=== PATIENT | female | born 1985 | race Caucasian/White ===

== ENCOUNTER → 2018-05-11 15:47 | Outpatient (CLI) | payer OTHER, MEDICAID, SELFPAY ==
[2018-05-11 17:50] LABS: Thyroid Stimulating Hormone 3.43 uIU/mL (0.47-4.68)
== END ==
PROVIDERS: PCP Family Medicine; Visit Provider Internal Medicine
DX: E03.9 Hypothyroidism, unspecified (principal)
CPT/HCPCS: 36415; 84443

== ENCOUNTER → 2018-11-19 11:01 | Outpatient (CLI) | payer OTHER, MEDICAID, SELFPAY | PROVIDERS: PCP Student in an Organized Health Care Education/Training Program; Visit Provider Student in an Organized Health Care Education/Training Program | DX: Z13.220 Encounter for screening for lipoid disorders (principal); E55.9 Vitamin D deficiency, unspecified ==

== ENCOUNTER → 2018-12-17 09:09 | Outpatient (CLI) | payer OTHER, MEDICAID, SELFPAY ==
[2018-12-17 10:06] LABS: Add Manual Diff / Slide Review NO; Basophils Absolute Auto 200 /uL (0-100); Basophils Percent Auto 2.7 % (0-2); Eosinophils Absolute Auto 300 /uL (0-450); Eosinophils Percent Auto 4.5 % (2-4); Hematocrit 37.6 % (36-46); Lymphocytes Absolute Auto 1800 /uL (1100-4500); Lymphocytes Percent Auto 24.5 % (25-40); Mean Corpuscular HGB Conc 34.5 % (30-36); Mean Corpuscular Hemoglobin 28.5 PG (26-34); Mean Corpuscular Volume 82.5 fL (80-100); Monocytes Absolute Auto 500 /uL (0-900); Monocytes Percent Auto 7.2 % (3-14); Neutrophils Absolute Auto 4500 /uL (1500-7000); Neutrophils Percent Auto 61.1 % (50-75); Platelet Count 339 X10^3/uL (150-400); Red Blood Cell Count 4.55 X10^6/uL (4.0-5.2); White Blood Cell Count 7.3 X10^3/uL (4.5-11.0)
[2018-12-17 10:33] LABS: Alanine Aminotransferase 36 IU/L (9-52); Albumin 4.5 g/dL (3.5-5.0); Albumin Globulin Ratio 1.5 (1.0-2.8); Alkaline Phosphatase 82 U/L (38-126); Aspartate Aminotransferase 25 IU/L (14-36); BUN Creatinine Ratio 28.3 (6-22); Bilirubin Total 0.8 mg/dL (0.2-1.3); Blood Urea Nitrogen 17 mg/dL (7-17); Calcium 8.9 mg/dL (8.4-10.2); Carbon Dioxide 23 mmol/L (22-32); Chloride 105 mmol/L (98-107); Cholesterol 189 mg/dL (140-199); Estimated Glomerular Filt Rate > 60.0 mL/min (>60); Globulin 3.1 g/dL (1.7-4.1); Glucose 93 mg/dL (70-100); HDL Cholesterol 35 mg/dL (40-60); HEMOLYSIS < 15 (0-50); LDL Cholesterol Calculated 96 mg/dL (<100); Sodium 139 mmol/L (137-145); Total Protein 7.6 g/dL (6.3-8.2); Triglycerides 290 mg/dL (35-150)
[2018-12-17 10:48] LABS: Vitamin D 25 Hydroxy (D3) 16.5 ng/mL (30.0-100.0)
[2018-12-17 11:01] LABS: Cortisol AM (Before 10AM) 15.4 ug/dL (4.46-22.7)
[2018-12-17 11:36] LABS: Free T3, Triiodothyronine Free 3.33 pg/mL (2.77-5.27); Free T4, Direct Thyroxine 0.83 ng/dL (0.78-2.19)
[2018-12-17 11:50] LABS: Thyroid Stimulating Hormone 2.96 uIU/mL (0.47-4.68)
[2018-12-19 15:18] LABS: Thyroid Peroxidase Antibodies 1 IU/mL (< 9)
== END ==
PROVIDERS: PCP Student in an Organized Health Care Education/Training Program; Visit Provider Student in an Organized Health Care Education/Training Program
DX: E03.9 Hypothyroidism, unspecified (principal); G47.00 Insomnia, unspecified; R63.5 Abnormal weight gain; Z13.220 Encounter for screening for lipoid disorders; E55.9 Vitamin D deficiency, unspecified
CPT/HCPCS: 36415; 80053; 80061; 82306; 82533; 84439; 84443; 84481; 85025; 86376

== ENCOUNTER 2019-04-22 20:08 | Emergency (ER) | payer OTHER, MEDICAID, SELFPAY ==
[2019-04-22 20:15] VITALS: BP 155/92; PULSE 87; RESP 12; TEMP 36.9; O2SAT 99; BMI 29.2
--- NOTE | 2019-04-22 20:42 | ED.NAVMDI ---
HPI - Nausea/Vomiting/Diarrhea General Chief complaint: Nausea/Vomiting/Diarrhea Stated complaint: VOMITING STOMACH PAIN Time Seen by Provider: 04/22/19 20:37 Source: patient Mode of arrival: ambulatory Limitations: no limitations History of Present Illness HPI Narrative: Patient is a 33-year-old female who presents with abdominal distention pain and vomiting. She states it started this morning she has some epigastric pain. She feels like her abdomen is more distended normal. She really has diffuse pain more in her epigastric area. She has vomited and not been able to keep anything down. She had a normal bowel movement yesterday. He took some Tylenol earlier for pain and is afebrile here but she says she has felt warm. She is in charge of 4 children and a father who has dementia she is not wanting any sort of narcotic medications. She says it hurts every time she walks. MD complaint: nausea, vomiting and abdominal pain Description of Diarrhea: none Location of pain: diffuse and epigastric Quality: cramping and stabbing Related Data Previous Rx's Medication Instructions Recorded zolpidem 10 mg tablet 10 mg PO HSP #30 tab 11/14/18 Allergies Allergy/AdvReac Type Severity Reaction Status Date / Time codeine Allergy Severe Anaphylaxis Verified 04/22/19 20:27 erythromycin base AdvReac Mild VIOLENTLY Verified 04/22/19 20:27 ILL Review of Systems Review of Systems GENERAL: Denies chills, fatigue, malaise, fever, sweats, travel HEENT: Denies sinus pain, ear pain, sore throat, difficulty swallowing, neck pain RESPIRATORY: Denies dyspnea, cough, wheezing, hemoptysis, sputum. CARDIOVASCULAR: Denies chest pain, palpitations, orthopnea, edema GASTROINTESTINAL: See HPI : Denies dysuria, frequency, incontinence, hematuria, urinary retention, flank pain. MUSCULOSKELETAL: Denies weakness, joint pain, or bony pain SKIN: No rash, no erythema, no pruritus NEUROLOGIC: Denies weakness, dizziness, headache, numbness, change in speech, confusion PSYCHIATRIC: No concerning psychosocial issues. 12 point review of systems is negative except for those stated above and HPI [facility] Medical History (Updated 04/22/19 @ 23:43 by Yee Mabry DO) Hypothyroidism (Chronic 2013) Surgical History (Updated 04/22/19 @ 20:58 by Yee Mabry DO) History of bilateral tubal ligation (Acute) Family History (Updated 05/04/18 @ 12:37 by Ciara Rivera) Mother Hypothyroidism Father Hyperlipidemia CAD (coronary artery disease) Social History Smoking Status: Never smoker alcohol intake: never substance use type: does not use Family History (Updated 05/04/18 @ 12:37 by Ciara Rivera) Mother Hypothyroidism Father Hyperlipidemia CAD (coronary artery disease) Social History Smoking Status: Never smoker alcohol intake: never substance use type: does not use Exam Initial Vital Signs Initial Vital Signs: Vital Signs Temperature 98.5 F 04/22/19 20:15 Pulse Rate 87 04/22/19 20:15 Respiratory Rate 12 04/22/19 20:15 Blood Pressure 155/92 H 04/22/19 20:15 Pulse Oximetry 99 04/22/19 20:15 GENERAL: Young female appears and [id number] pain really has difficulty ambulating due to pain. HEENT: Head atraumatic,EOMI, pupils reactive, face symmetric, [moist] mucous membranes] CARDIOVASCULAR: Regular rate and rhythm without murmurs, rubs or gallops. RESPIRATORY: Breath sounds equal bilaterally, no wheezes rales or rhonchi. ABDOMEN: Soft slightly distended diffuse pain mostly in epigastric area and right upper quadrant but has pain in her lower abdomen as well decreased bowel sounds : No CVA tenderness EXTREMITIES: Normal range of motion, no clubbing or edema. Neurovascularly intact NEUROLOGICAL: Alert and oriented x4.Normal gait and speech. Cranial nerves II through XII grossly intact. SKIN: Warm, dry, no laceration, no petechiae, no rashes or lesions. Course Orders Ordered: ED Orders 04/22/19 20:30 Complete Blood Count AUTO DIFF Stat Comprehensive Metabolic Panel Stat Lipase Stat Partial Thromboplastin Time Stat Test Serum,Qual Stat Prothrombin Time INR Stat 04/22/19 21:12 Urine Microscopic Stat 04/22/19 21:24 CT abdomen pelvis w con Stat 04/22/19 22:07 US abdomen limited Stat Discontinued Medications Sodium Chloride (Normal Saline 0.9%) 1,000 mls @ 1,000 mls/hr IV BOLUS ONE Stop: 04/22/19 21:22 Last Infusion: 04/22/19 23:59 Dose: 0 mls/hr Admin: 04/22/19 21:05 Dose: 1,000 mls/hr Sodium Chloride (Normal Saline 0.9%) 1,000 mls @ 1,000 mls/hr IV BOLUS ONE Stop: 04/22/19 21:49 Ketorolac Tromethamine (Toradol) 30 mg IV NOW ONE Stop: 04/22/19 22:08 Last Admin: 04/22/19 22:16 Dose: 30 mg Ondansetron HCl (Zofran) 4 mg IV NOW ONE Stop: 04/22/19 20:24 Last Admin: 04/22/19 21:05 Dose: 4 mg Ondansetron HCl (Zofran) 4 mg IV NOW ONE Stop: 04/22/19 20:51 Ondansetron HCl (Zofran Odt) 4 mg SL NOW ONE Stop: 04/22/19 23:40 Ondansetron HCl (Zofran Odt Prepack) 1 bottle MISC SEEINSTR ONE Stop: 04/22/19 23:59 Last Admin: 04/22/19 23:59 Dose: 1 bottle Oxycodone/Acetaminophen (Endocet 5/325 Prepack) 1 bottle MISC SEEINSTR ONE Stop: 04/22/19 23:40 Last Admin: 04/22/19 23:58 Dose: 1 bottle Pantoprazole Sodium (Protonix) 40 mg IV NOW ONE Stop: 04/22/19 20:51 Last Admin: 04/22/19 21:05 Dose: 40 mg Vital Signs - 8 hr 04/22/19 20:15 04/22/19 21:13 04/22/19 22:11 Temperature 98.5 F Pulse Rate 87 83 90 Respiratory Rate 12 12 15 Blood Pressure 155/92 H Blood Pressure [Right Arm] 155/82 H 112/77 Pulse Oximetry 99 99 98 04/22/19 23:00 04/22/19 23:30 Temperature Pulse Rate 82 83 Respiratory Rate 16 17 Blood Pressure Blood Pressure [Right Arm] 115/90 117/88 Pulse Oximetry 100 98 MDM - Nausea/Vomiting/Diarrhea Lab Data Attestation: I reviewed the patient's lab results. Result diagrams: 04/22/19 20:30 04/22/19 20:30 Lab Results 04/22/19 04/22/19 04/22/19 Range/Units 20:30 20:30 20:30 WBC 11.0 (4.5-11.0) X10^3/uL RBC 4.83 (4.0-5.2) X10^6/uL Hgb 13.7 (12.0-16.0) g/dL Hct 41.0 (36-46) % MCV 85.0 (80-100) fL MCH 28.4 (26-34) PG MCHC 33.4 (30-36) % RDW 15.1 H (11.6-14.8) % Plt Count 307 (150-400) X10^3/uL Neut % (Auto) 68.3 (50-75) % Lymph % (Auto) 21.3 L (25-40) % [place] % (Auto) 6.0 (3-14) % Eos % (Auto) 3.8 (2-4) % Baso % (Auto) 0.6 (0-2) % Neut # (Auto) 7500 H (3624-8013) /uL Lymph # (Auto) 2400 (4332-5562) /uL [place] # (Auto) 700 (0-900) /uL Eos # (Auto) 400 (0-450) /uL Baso # (Auto) 100 (0-100) /uL PT 10.3 (10.1-12.7) SECONDS INR 0.9 (0.9-1.3) APTT 30 (26.4-36.2) SECONDS Sodium 140 (137-145) mmol/L Potassium 4.2 (3.4-5.1) mmol/L Chloride 102 (98-107) mmol/L Carbon Dioxide 26 (22-32) mmol/L BUN 15 (7-17) mg/dL Creatinine 0.50 L (0.52-1.04) mg/dL Estimated GFR > 60.0 (>60) mL/min BUN/Creatinine Ratio 30.0 H (6-22) Glucose 87 (70-100) mg/dL Calcium 9.8 (8.4-10.2) mg/dL Total Bilirubin 0.5 (0.2-1.3) mg/dL AST 27 (14-36) IU/L ALT 20 (9-52) IU/L Alkaline Phosphatase 83 (38-126) U/L Total Protein 8.8 H (6.3-8.2) g/dL Albumin 5.1 H (3.5-5.0) g/dL Globulin 3.7 (1.7-4.1) g/dL Albumin/Globulin Ratio 1.4 (1.0-2.8) Lipase 168 (23-300) U/L Serum , Qual (Negative) Urine RBC (0-5/HPF) Urine WBC (0-5/HPF) Ur Squamous Epith Cells (0-5/HPF) Amorphous Sediment Urine Bacteria (None) Ur Culture Indicated? 04/22/19 04/22/19 Range/Units 20:30 21:12 WBC (4.5-11.0) X10^3/uL RBC (4.0-5.2) X10^6/uL Hgb (12.0-16.0) g/dL Hct (36-46) % MCV (80-100) fL MCH (26-34) PG MCHC (30-36) % RDW (11.6-14.8) % Plt Count (150-400) X10^3/uL Neut % (Auto) (50-75) % Lymph % (Auto) (25-40) % [place] % (Auto) (3-14) % Eos % (Auto) (2-4) % Baso % (Auto) (0-2) % Neut # (Auto) (9714-2779) /uL Lymph # (Auto) (7816-7514) /uL [place] # (Auto) (0-900) /uL Eos # (Auto) (0-450) /uL Baso # (Auto) (0-100) /uL PT (10.1-12.7) SECONDS INR (0.9-1.3) APTT (26.4-36.2) SECONDS Sodium (137-145) mmol/L Potassium (3.4-5.1) mmol/L Chloride (98-107) mmol/L Carbon Dioxide (22-32) mmol/L BUN (7-17) mg/dL Creatinine (0.52-1.04) mg/dL Estimated GFR (>60) mL/min BUN/Creatinine Ratio (6-22) Glucose (70-100) mg/dL Calcium (8.4-10.2) mg/dL Total Bilirubin (0.2-1.3) mg/dL AST (14-36) IU/L ALT (9-52) IU/L Alkaline Phosphatase (38-126) U/L Total Protein (6.3-8.2) g/dL Albumin (3.5-5.0) g/dL Globulin (1.7-4.1) g/dL Albumin/Globulin Ratio (1.0-2.8) Lipase (23-300) U/L Serum , Qual Negative (Negative) Urine RBC None seen (0-5/HPF) Urine WBC 1-5/hpf (0-5/HPF) Ur Squamous Epith Cells 5-10 /hpf H (0-5/HPF) Amorphous Sediment 1+ Urine Bacteria Moderate (10-30) H (None) Ur Culture Indicated? Cult not indicated Point of Care Testing Test Results Negative Urine Dip Bedside Urine Glucose Negative Bedside Urine Bilirubin - Negative Bedside Urine Ketone - Negative Urine Specific [place] 1.025 Bedside Urine Occult Blood - Negative Bedside Urine pH 6.5 Bedside Urine Protein - Negative Bedside Urine Urobilinogen - Negative Bedside Urine Nitrite - Negative Bedside Urine Leukocytes +++ [address] scan - abdomen: Radiologist's impression: PROCEDURE: CT ABDOMEN PELVIS W CON INDICATIONS: severe diffuse pain vomiting bloating TECHNIQUE: After the administration of oral and intravenous contrast, 5 mm thick sections acquired from the diaphragms to the symphysis. 5 mm thick coronal and sagittal reformats were performed. For radiation dose reduction, the following was used: automated exposure control, adjustment of mA and/or kV according to patient size. COMPARISON: None. FINDINGS: Image quality: Excellent. ABDOMEN: Lung bases: Lung bases are clear. Heart size is normal. Solid organs: The liver is mildly enlarged at 20.0 cm in craniocaudal dimension. Gallbladder is borderline enlarged and appears to contain a gallstone within the region of the neck of the gallbladder. There may be a thickening of the wall of the gallbladder. The common bile duct is slightly prominent in size and measures up to approximately 8 mm in diameter within the region of the sara hepatis. The main pancreatic duct is not enlarged. No intrahepatic biliary dilatation is appreciated. The pancreas is unremarkable. The spleen is measuring within the upper limits of normal at 12.3 cm. There is slight heterogeneous enhancement at the cortical medullary junctions of both kidneys, which may project into the renal cortices. No perinephric edema is present. No rosibel hydronephrosis is identified. No definitive urothelial enhancement of the ureters is identified. The adrenals are within normal limits. Peritoneum and bowel: The stomach and duodenum are unremarkable. The small bowel loops are nondilated. A moderate amount of stool is seen throughout the colon. The appendix is well-visualized and normal without surrounding inflammation. No free fluid or loculated fluid collection is seen within the abdomen. There is no free air. Nodes and vessels: No retroperitoneal or mesenteric adenopathy. Aorta and inferior vena cava are normal in caliber. Bones: No acute fracture or suspicious osseous lesion is evident. PELVIS: Genitourinary: Bladder wall thickness is normal. The uterus is enlarged. The right ovary is normal in size. There appears to be a collapsing left ovarian follicle/cyst that measures up to approximately 1.3 cm (image 76, series 2). Miscellaneous: A small amount of free fluid within the pelvis is likely physiologic. There is no loculated fluid collection or free air. No pelvic adenopathy or inguinal hernias are evident. Bones: No suspicious bony lesions. No vertebral body compression fractures. IMPRESSION: 1. Distended gallbladder containing a gallstone at the neck of the gallbladder and possible gallbladder wall thickening. There also is enlargement of the common bile duct. Please correlate clinically for possible acute cholecystitis. 2. Heterogeneous enhancement of the kidneys is nonspecific and could potentially be related to very small parapelvic cysts. However, in the correct clinical setting of pyelonephritis or renal vascular infarctions could potentially result in this appearance and clinical correlation is recommended. 3. Mild enlargement of the spleen and liver. 4. Collapsing left ovarian follicle/cyst. 5. Trace free fluid within the pelvis is felt to be physiologic. 6. Normal appendix. No bowel obstruction. Dictated by: Eulalio Cabrera M.D. 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 Hepatomegaly with fatty infiltration of the liver MDM Narrative Medical decision making narrative: Patient has no leukocytosis elevated bilirubin her liver enzymes. At this time no acute cholecystitis is suspected. However she does have a very large gallstone impacted in the gallbladder. I spoke with a , on-call for surgery it at this time he does agree with outpatient follow-up. In fact he might be able to get her in tomorrow. Recommend NPO after midnight and to call the office 1st thing in the morning. Discharge Plan Departure Patient Disposition: Home Clinical Impression: Cholelithiasis Qualifiers: Cholelithiasis location: gallbladder Cholecystitis presence: without cholecystitis Biliary obstruction: without biliary obstruction Qualified Code(s): K80.20 - Calculus of gallbladder without cholecystitis without obstruction Discharge Date/Time: 04/23/19 00:03 Interventions: ED Discharge Assessment Last Done: 04/23/19 00:01 Instructions: DI for Gallstones Activity Restrictions/Additional Instructions: *You have been diagnosed with gallstones *What to do: Do not eat or drink anything AFTER MIDNIGHT. CALL SURGERY OFFICE 1ST THING IN THE MORNING. YOU WILL POTENTIALLY AND HOME LIKELY HAVE SURGERY TOMORROW *Continue to take medications as directed -Zofran 4 mg every 6-8 hours if needed for nausea vomiting -Percocet 1-2 tablets every 6 hours if needed for severe pain *Follow up with surgery *Return to ER if you should have fever, persistent vomiting increasing pain or any new, worsening or concerning symptoms Prescriptions: No Action zolpidem 10 mg tablet 10 mg PO HSP Qty: 30 RF: 5 Referrals: Rohan Adrian MD [Primary Care Provider] - Emilio Echavarria MD [Physician] -
[2019-04-22 20:52] LABS: Add Manual Diff / Slide Review NO; Basophils Absolute Auto 100 /uL (0-100); Basophils Percent Auto 0.6 % (0-2); Eosinophils Absolute Auto 400 /uL (0-450); Eosinophils Percent Auto 3.8 % (2-4); Hemoglobin 13.7 g/dL (12.0-16.0); Lymphocytes Absolute Auto 2400 /uL (1100-4500); Lymphocytes Percent Auto 21.3 % (25-40); Mean Corpuscular HGB Conc 33.4 % (30-36); Mean Corpuscular Hemoglobin 28.4 PG (26-34); Monocytes Absolute Auto 700 /uL (0-900); Neutrophils Absolute Auto 7500 /uL (1500-7000); Neutrophils Percent Auto 68.3 % (50-75); Platelet Count 307 X10^3/uL (150-400); Red Blood Cell Count 4.83 X10^6/uL (4.0-5.2); Red Cell Distribution Width 15.1 % (11.6-14.8)
[2019-04-22 20:53] LABS: INR 0.9 (0.9-1.3); Pregnancy Test Serum,Qual Negative (Negative); Prothrombin Time 10.3 SECONDS (10.1-12.7)
[2019-04-22 20:55] LABS: Alanine Aminotransferase 20 IU/L (9-52); Albumin 5.1 g/dL (3.5-5.0); Albumin Globulin Ratio 1.4 (1.0-2.8); Alkaline Phosphatase 83 U/L (38-126); Aspartate Aminotransferase 27 IU/L (14-36); Bilirubin Total 0.5 mg/dL (0.2-1.3); Blood Urea Nitrogen 15 mg/dL (7-17); Calcium 9.8 mg/dL (8.4-10.2); Carbon Dioxide 26 mmol/L (22-32); Chloride 102 mmol/L (98-107); Estimated Glomerular Filt Rate > 60.0 mL/min (>60); Globulin 3.7 g/dL (1.7-4.1); Glucose 87 mg/dL (70-100); HEMOLYSIS 21 (0-50); Lipase 168 U/L (23-300); Potassium 4.2 mmol/L (3.4-5.1); Sodium 140 mmol/L (137-145); Total Protein 8.8 g/dL (6.3-8.2)
[2019-04-22 20:56] LABS: PTT Partial Thromboplastin Tim 30 SECONDS (26.4-36.2)
[2019-04-22] MEDS: SODIUM CHLORIDE 0.9% 1,000 ML 1000 ML IV (21:05)
[2019-04-22] MEDS: PANTOPRAZOLE 40 MG VIAL IV (21:05)
[2019-04-22] MEDS: ONDANSETRON 4 MG/2 ML INJ IV (21:05)
[2019-04-22 21:13] VITALS: BP 155/82; PULSE 83; RESP 12; O2SAT 99
--- NOTE | 2019-04-22 21:24 | DI.CT.S_ITS ---
PROCEDURE: CT ABDOMEN PELVIS W CON INDICATIONS: severe diffuse pain vomiting bloating TECHNIQUE: After the administration of oral and intravenous contrast, 5 mm thick sections acquired from the diaphragms to the symphysis. 5 mm thick coronal and sagittal reformats were performed. For radiation dose reduction, the following was used: automated exposure control, adjustment of mA and/or kV according to patient size. COMPARISON: None. FINDINGS: Image quality: Excellent. ABDOMEN: Lung bases: Lung bases are clear. Heart size is normal. Solid organs: The liver is mildly enlarged at 20.0 cm in craniocaudal dimension. Gallbladder is borderline enlarged and appears to contain a gallstone within the region of the neck of the gallbladder. There may be a thickening of the wall of the gallbladder. The common bile duct is slightly prominent in size and measures up to approximately 8 mm in diameter within the region of the sara hepatis. The main pancreatic duct is not enlarged. No intrahepatic biliary dilatation is appreciated. The pancreas is unremarkable. The spleen is measuring within the upper limits of normal at 12.3 cm. There is slight heterogeneous enhancement at the cortical medullary junctions of both kidneys, which may project into the renal cortices. No perinephric edema is present. No rosibel hydronephrosis is identified. No definitive urothelial enhancement of the ureters is identified. The adrenals are within normal limits. Peritoneum and bowel: The stomach and duodenum are unremarkable. The small bowel loops are nondilated. A moderate amount of stool is seen throughout the colon. The appendix is well-visualized and normal without surrounding inflammation. No free fluid or loculated fluid collection is seen within the abdomen. There is no free air. Nodes and vessels: No retroperitoneal or mesenteric adenopathy. Aorta and inferior vena cava are normal in caliber. Bones: No acute fracture or suspicious osseous lesion is evident. PELVIS: Genitourinary: Bladder wall thickness is normal. The uterus is enlarged. The right ovary is normal in size. There appears to be a collapsing left ovarian follicle/cyst that measures up to approximately 1.3 cm (image 76, series 2). Miscellaneous: A small amount of free fluid within the pelvis is likely physiologic. There is no loculated fluid collection or free air. No pelvic adenopathy or inguinal hernias are evident. Bones: No suspicious bony lesions. No vertebral body compression fractures. IMPRESSION: 1. Distended gallbladder containing a gallstone at the neck of the gallbladder and possible gallbladder wall thickening. There also is enlargement of the common bile duct. Please correlate clinically for possible acute cholecystitis. 2. Heterogeneous enhancement of the kidneys is nonspecific and could potentially be related to very small parapelvic cysts. However, in the correct clinical setting of pyelonephritis or renal vascular infarctions could potentially result in this appearance and clinical correlation is recommended. 3. Mild enlargement of the spleen and liver. 4. Collapsing left ovarian follicle/cyst. 5. Trace free fluid within the pelvis is felt to be physiologic. 6. Normal appendix. No bowel obstruction. Dictated by: Eulalio Cabrera M.D. on 04/22/2019 at 21:56 Approved by: Eulalio Cabrera M.D. on 04/22/2019 at 22:02
[2019-04-22 21:25] LABS: RBC Urine None Seen (0-5/HPF)
[2019-04-22 21:48] LABS: Amorphous Sediment Urine 1+; Bacteria Urine Moderate (10-30); Culture Indicated Urine Cult Not Indicated; Squamous Epithelial Cell Urine 5-10 /HPF (0-5/HPF); WBC Urine 1-5/HPF (0-5/HPF)
--- NOTE | 2019-04-22 22:07 | DI.US.S_ITS ---
PROCEDURE: US ABDOMEN LIMITED INDICATIONS: right uppper quad TECHNIQUE: Real-time focused scanning was performed of the abdomen, with image documentation. COMPARISON: None. FINDINGS: Liver has a diffusely increased echotexture which typically represents fatty infiltration; however, finding is nonspecific and other etiologies including hepatic cirrhosis can have a similar appearance. Please correlate with clinical and laboratory findings. 1.6 cm gallstone is lodged in the gallbladder neck. Gallbladder wall is at the upper limits of normal measuring 2.9 mm in thickness. Minimal pericholecystic fluid. Positive sonographic Humphreys sign noted. Biliary tree is nondilated. IMPRESSION: 1. 1.6 cm gallstone lodged in the gallbladder neck with positive sonographic Humphreys sign and minimal pericholecystic fluid concerning for early acute cholecystitis. 2. Echogenic liver. Finding typically represents fatty infiltration; however, finding is nonspecific and correlation with clinical and laboratory findings is recommended to exclude other etiologies including hepatic cirrhosis. Dictated by: Brigitte Wade MD, PhD on 04/23/2019 at 9:55 Approved by: Brigitte Wade MD, PhD on 04/23/2019 at 9:58
[2019-04-22 22:11] VITALS: BP 112/77; PULSE 90; RESP 15; O2SAT 98
[2019-04-22] MEDS: KETOROLAC 60 MG/2 ML VIAL 30 MG IV (22:16)
[2019-04-22 23:00] VITALS: BP 115/90; PULSE 82; RESP 16; O2SAT 100
[2019-04-22 23:30] VITALS: BP 117/88; PULSE 83; RESP 17; O2SAT 98
[2019-04-22] MEDS: OXYCODONE/APAP 5/325 PREPACK 1 BOTTLE MISC (23:58)
[2019-04-22] MEDS: ONDANSETRON 4 MG ODT PREPACK 1 BOTTLE MISC (23:59)
== END 2019-04-23 00:03 | disposition home or self-care (01) ==
PROVIDERS: Emergency Provider Emergency Medicine; PCP Student in an Organized Health Care Education/Training Program
DX: K80.20 Calculus of gallbladder without cholecystitis without obstruction (principal)
CPT/HCPCS: 36415; 36591; 74177; 76705; 80053; 81003; 81015; 81025; 83690; 84703; 85025; 85610; 85730; 96361; 96374; 96375; 99283; 99284; C9113; J1885; J2405

== ENCOUNTER 2019-04-23 10:52 | Day surgery (SDC) | payer OTHER, MEDICAID, SELFPAY ==
[2019-04-23] VITALS (12 sets, daily range): BP systolic 106–137; BP diastolic 66–95; PULSE 84–105; RESP 11–24; TEMP 36.3–36.8; O2SAT 94–98; BMI 26.5
--- NOTE | 2019-04-23 | PATH_ITS ---
[facility] Accession Number: [id number] . 01 Material submitted: . gallbladder - GALLBLADDER AND CONTENTS . 02 Diagnosis: Gallbladder, Cholecystectomy: Chronic cholecystitis with cholelithiasis. Negative for dysplasia and malignancy. MRV/04/25/2019 . 02 Electronically signed: . Do Mcgarry MD, Pathologist NPI- [id number] . 01 Gross description: . Received in formalin, labeled gallbladder / contents, is an intact gallbladder (length-9.0 cm, diameter-2.8 cm) with pale pink smooth shiny serosa and a patent cystic duct. No lymph nodes are identified. The lumen contains pale green mucoid bile and one ingram-green gritty hard calculus (1.8 x 1.7 x 1.3 cm) with a crystalline cut surface. The mucosa is ingram, smooth and flat. The wall is up to 0.2 cm thick. No nodules, masses or lesions are identified. Section code: (A1) cystic duct resection margin and two serial sections from the body; (A2) two longitudinal sections from the fundus. ([id number]) /MRV . 02 Pathologist provided ICD-10: K80.60 . 02 CPT . 521620 Performed at: 01 [facility] [address], [place], [place] [id number] MD Torsten Wilson MD Phone: [phone] Performed at: 02 [facility] [address] [place], [place] [id number] MD Do Mcgarry MD Phone: [phone]
[2019-04-23] MEDS: ONDANSETRON 4 MG/2 ML INJ IV ×2 (11:55→15:33)
[2019-04-23] MEDS: METOCLOPRAMIDE 10 MG/2 ML INJ IV (11:59)
[2019-04-23] MEDS: fentaNYL 100 MCG/2 ML INJ 50 MCG IV (12:01)
--- NOTE | 2019-04-23 12:20 | PM.HP.1 ---
History of Present Illness Date Patient Seen: 04/23/19 Time Patient Seen: 12:20 Chief complaint: [id number] Narrative: Patient seen and examined Unchanged from clinic note earlier today Laparoscopic cholecystectomy planned Patient History Medical History (Updated 04/22/19 @ 23:43 by Yee Mabry DO) Hypothyroidism (Chronic 2013) Surgical History (Updated 04/22/19 @ 20:58 by Yee Mabry DO) History of bilateral tubal ligation (Acute) Family History (Updated 05/04/18 @ 12:37 by Ciara Rivera) Mother Hypothyroidism Father Hyperlipidemia CAD (coronary artery disease) Social History household members: family and children Smoking Status: Never smoker alcohol intake: never substance use type: does not use Family & Social History Family History (Updated 05/04/18 @ 12:37 by Ciara Rivera) Mother Hypothyroidism Father Hyperlipidemia CAD (coronary artery disease) Social History: household members family,children Tobacco & Substance use: Smoking Status Never smoker alcohol intake never alcohol intake frequency 0-2 drinks per day Substance Use Type does not use Meds Home Medications Medication Instructions Recorded Confirmed Type zolpidem 10 mg tablet 10 mg PO HSP #30 tab 11/14/18 04/23/19 Rx ibuprofen [Advil] 400 mg PO QID PRN 04/23/19 04/23/19 History Allergies Allergy/AdvReac Type Severity Reaction Status Date / Time codeine Allergy Severe Anaphylaxis Verified 04/23/19 09:17 erythromycin base AdvReac Mild VIOLENTLY Verified 04/23/19 09:17 ILL Exam Vital Signs (past 8 hours): - 04/23/19 11:26 Temperature 98.1 F Pulse Rate 84 Respiratory Rate 16 Blood Pressure 106/75 Pulse Oximetry 98 Oxygen Delivery Method Room Air
[2019-04-23] MEDS: CEFTRIAXONE 2 GM/50 ML FROZ.PIGGY IV (12:45)
[2019-04-23] MEDS: LACTATED RINGERS 1,000 ML 42 ML IV ×3 (12:55→15:34)
--- NOTE | 2019-04-23 13:12 | SUR.OPER ---
Supine on padded OR bed, head on pillow, arms secured on padded arm boards at <90 degrees abduction, legs uncrossed, safety belt at thigh, tape over blanket over lower legs. Padded foot board against feet.
[2019-04-23] MEDS: metroNIDAZOLE 500 MG/100 ML PIGGYBACK 100 MG IV (13:18)
[2019-04-23] MEDS: ACETAMINOPHEN IV 1,000 MG/100 ML VIAL 400 MG IV (13:43)
[2019-04-23] MEDS: BUPIVACAINE 0.25% W/ EPI 30 ML VIAL INJ (14:01)
[2019-04-23] MEDS: LORazepam 2 MG/ML INJ 0.25 MG IV (14:44)
--- NOTE | 2019-04-23 14:59 | P.OP_ITS ---
Operative Date/Time/Diagnoses Date of procedure: 04/23/19 Time of procedure: 14:46 Pre-op diagnosis: acute cholecystitis Post-op diagnosis: same Procedure & Clinicians Procedure: Laproscopic cholecystectomy Same procedure as scheduled: Yes Indications: 33 yo woman presented to emergency department last night with progressive right upper quadrant pain with associated nausea and vomiting she was found to have a gallstone lodged in the neck of her gallbladder. Due to complex family which reason she returned home from the emergency department presented to general surgery clinic the following morning where she had rosibel chills and market pain. From clinic she was taken to preop and then to the operating room for cholecystectomy. Surgeon: Emilio Echavarria Click Yes if Unassisted: Yes Anesthesia Type: General Operative Notes Findings: Large gallstone within the neck of the gallbladder Significant gallbladder wall edema consistent with early cholecystitis Anatomy clear -critical view of safety obtained Closure Type: primary Specimen(s): other (Gallbladder and contents) Estimated Blood Loss (mL): 30 Procedure in detail: Patient was taken to the operating room she was intubated without incident she was prepped and draped in the usual sterile fashion. A time-out was completed. Entry to the abdomen was port formed using Veress needle technique. A small stab incision was made at musa's point and varies needle was advanced slowly with a distinct click upon entering into the abdomen. Aspirating the needle there was no succus or blood and there was a confirmatory saline drop test. The abdomen was insufflated with early insufflation pressures low. Once 15 mm of insufflation pressure was obtained a small vertically oriented incision was carried through the superior umbilical crown using Visiport technique a 5 mm port in 0 degree scope was utilized to press the trocar through the abdominal wall visualizing all layers of the abdominal wall. Once the is open space of the abdomen was entered the scope was withdrawn and with it the turning and beading machine operator of the trocar. The scope was then reinserted the Veress needle site was inspected and found to be without bleeding or injury and it was removed. This point the scope was switched out for a 5 mm 30 degree scope. Two 5 mm ports were then placed in right upper quadrant 11 mm port placed in the epigastrium. The fundus of gallbladder was grasped and elevated cephalad this revealed multiple filmy adhesions between the omentum and the gallbladder wall which was easily stripped down. There was also multiple adhesions between the duodenum and the infundibulum lysed carefully using sharp dissection. The infu ndibulum of the gallbladder was then grasped and retracted laterally. The viceral peritoneum on the medial and lateral aspect of the gland was incised. Using blunt dissection the visceral peritoneum was stripped down opening up the cystic duct triangle. A large dilated cystic duct was obviously identified with clear stone within it using primarily blunt dissection I circumferentially dissected around this until the cystic duct of normal caliber was identified below this. In order to facilitate opening up the cystic triangle of the cystic artery was divided however it was not a single artery but rather an multiple arborized branches that extended on to the gallbladder directly. each was individually clipped and divided without incident. This facilitated opening up a window between the dilated cystic duct with impacted stone and the underlying cystic plate. the cystic duct was identified to be fairly short and the common bile duct was identified near by. without encroaching on the common bile duct whatsoever clips were applied across the cystic duct with 2 clips remaining on the stump and the cystic duct itself was divided. the gland was then reflected off the gallbladder fossa without incident using suction primarily hook cautery. The gland was detached from the gallbladder fossa placed in Endo-Catch bag and removed from the abdomen via the epigastric port. at this point the dissection bed was inspected the clips were noted to be well placed with excellent hemostasis the area was irrigated suctioned dry until the effluent returned clear more since pouch was similarly irrigated and suctioned dry. Hemostasis was confirmed to be excellent. The epigastric fascial defect was then closing seeing 2 trans fascial 0 Vicryl sutures placed with a suture Passer device. ports were then withdrawn under direct visualization. Local anesthetic was infiltrated into the wounds and skin was closing monofilament absorbable suture in a subcuticular fashion. Patient was extubated and brought to PACU without incident Complications: none Condition: stable Disposition: PACU Plan for aftercare: PACU and then home
--- NOTE | 2019-04-23 17:02 | SUR.PHASEII ---
1622: pt up to restroom, able to void. VSS. Pt reports pain improved, tolerating at 3/10 and denies wanting medication. Pt denies nausea at this time and was able to drink 2 apple juices and eat several saltine crackers. The pt's biggest complaint is the taste in her mouth, she said it tastes like plastic. Belongings, instructions and prescription given to pt and escort upon discharge.
== END 2019-04-23 16:30 | disposition home or self-care (01) ==
PROVIDERS: PCP Student in an Organized Health Care Education/Training Program; Visit Provider Surgery
PROC: 0FT44ZZ Resection of Gallbladder, Percutaneous Endoscopic Approach (ICD-10-PCS; CPT 47562; principal; 2019-04-23 12:30)
DX: K80.00 Calculus of gallbladder with acute cholecystitis without obstruction (principal)
CPT/HCPCS: 47562; J0131; J0330; J0696; J1100; J2060; J2250; J2405; J2704; J2765; J3010

== ENCOUNTER 2019-04-28 16:28 | Emergency (ER) | payer OTHER, MEDICAID, SELFPAY ==
[2019-04-28 16:41] VITALS: BP 117/79; PULSE 85; RESP 18; TEMP 36.9; O2SAT 99; BMI 28.3
[2019-04-28 17:20] LABS: Add Manual Diff / Slide Review NO; Basophils Absolute Auto 100 /uL (0-100); Basophils Percent Auto 1.1 % (0-2); Eosinophils Absolute Auto 600 /uL (0-450); Eosinophils Percent Auto 7.4 % (2-4); Hematocrit 37.3 % (36-46); Hemoglobin 12.5 g/dL (12.0-16.0); Lymphocytes Absolute Auto 2200 /uL (1100-4500); Lymphocytes Percent Auto 26.7 % (25-40); Mean Corpuscular HGB Conc 33.6 % (30-36); Mean Corpuscular Hemoglobin 28.6 PG (26-34); Mean Corpuscular Volume 85.3 fL (80-100); Monocytes Absolute Auto 600 /uL (0-900); Monocytes Percent Auto 7.3 % (3-14); Neutrophils Absolute Auto 4700 /uL (1500-7000); Neutrophils Percent Auto 57.5 % (50-75); Platelet Count 305 X10^3/uL (150-400); Red Blood Cell Count 4.37 X10^6/uL (4.0-5.2); Red Cell Distribution Width 14.8 % (11.6-14.8); White Blood Cell Count 8.1 X10^3/uL (4.5-11.0)
[2019-04-28 17:32] LABS: Lactate (Lactic Acid) 1.2 mmol/L (0.7-2.1)
[2019-04-28 17:33] LABS: Alanine Aminotransferase 219 IU/L (9-52); Albumin 4.5 g/dL (3.5-5.0); Albumin Globulin Ratio 1.6 (1.0-2.8); Alkaline Phosphatase 98 U/L (38-126); Aspartate Aminotransferase 57 IU/L (14-36); BUN Creatinine Ratio 26.7 (6-22); Bilirubin Total 0.5 mg/dL (0.2-1.3); Blood Urea Nitrogen 16 mg/dL (7-17); Calcium 9.6 mg/dL (8.4-10.2); Carbon Dioxide 27 mmol/L (22-32); Chloride 105 mmol/L (98-107); Estimated Glomerular Filt Rate > 60.0 mL/min (>60); Globulin 2.9 g/dL (1.7-4.1); Glucose 95 mg/dL (70-100); HEMOLYSIS < 15 (0-50); Potassium 4.4 mmol/L (3.4-5.1); Sodium 141 mmol/L (137-145); Total Protein 7.4 g/dL (6.3-8.2)
--- NOTE | 2019-04-28 17:35 | DI.CT.S_ITS ---
PROCEDURE: CT ABDOMEN PELVIS W CON INDICATIONS: abd pain post-feliciano TECHNIQUE: After the administration of intravenous contrast, 5 mm thick sections acquired from the diaphragm to the symphysis. 5 mm coronal and sagittal reformats were acquired. For radiation dose reduction, the following was used: automated exposure control, adjustment of mA and/or kV according to patient size. COMPARISON: [facility], CT, CT ABDOMEN PELVIS W CON, 04/22/2019, 21:39. FINDINGS: Image quality: Excellent. ABDOMEN: Lung bases: Lung bases are clear. Heart size is normal. Solid organs: Liver is normal in size. Hepatic steatosis is seen. No discrete hepatic lesion. Gallbladder is surgically absent. No abnormal fluid collection is seen within the gallbladder fossa. Biliary system is non dilated. Pancreas enhances normally. Spleen is normal in size and enhancement. No adrenal nodules. Kidneys demonstrate normal size and enhancement, without hydronephrosis. Peritoneum and bowel: Bowel loops demonstrate normal wall thickness and caliber. No free fluid or air. A small hiatal hernia is seen. Fecal stasis throughout the colon is noted. No free fluid or free air. Nodes and vessels: No retroperitoneal or mesenteric adenopathy by size criteria. Aorta and inferior vena cava are normal in size. Miscellaneous: No ventral hernias. PELVIS: Genitourinary: Bladder wall thickness is normal. Uterus and bilateral adnexa show no gross abnormality. Miscellaneous: No inguinal hernias or adenopathy. Bones: No suspicious bony lesions. No vertebral body compression fractures. IMPRESSION: 1. Patient is status post cholecystectomy. No abnormal fluid collection is seen in gallbladder fossa. 2. No bowel obstruction. No free fluid or free air. 3. Hepatic steatosis. No discrete hepatic lesion. Dictated by: Kev Reynoso M.D. on 04/28/2019 at 18:35 Approved by: Kev Reynoso M.D. on 04/28/2019 at 18:38
--- NOTE | 2019-04-28 17:38 | ED.ABDPAIN ---
HPI - Abdominal Pain General Chief Complaint: Abdominal Pain Stated Complaint: s/p 5 days feliciano./n/v/pain/chills x4days Time Seen by Provider: 04/28/19 17:04 Source: patient Mode of arrival: ambulatory Limitations: no limitations History of Present Illness HPI narrative: Patient presents emergency department complaining of generalized upper abdominal pain and bloating. She is 5 days status post laparoscopic cholecystectomy, and states that she ?may have been a little to active?. Patient states she went home from the hospital the same day, and was vacuuming that night. She states that she has 4 sons and a father who needs her help, and she has not been able to just relax and recuperate. She does note that she has been able to have bowel movements without difficulty. She has been taking ?a lot of Tylenol?, but has not been taking her narcotic pain medication. Patient denies nausea or vomiting. No diarrhea. No dysuria. No fever has been measured, but she has noticed some chills. No shortness breath or chest pain. No other complaints at this time. Related Data Home Medications Medication Instructions Recorded Confirmed ibuprofen [Advil] 400 mg PO QID PRN 04/23/19 04/23/19 Previous Rx's Medication Instructions Recorded zolpidem 10 mg tablet 10 mg PO HSP #30 tab 11/14/18 oxycodone 5 mg PO Q4-6H PRN #10 tab 04/23/19 Allergies Allergy/AdvReac Type Severity Reaction Status Date / Time codeine Allergy Severe Anaphylaxis Verified 04/28/19 16:41 erythromycin base AdvReac Mild VIOLENTLY Verified 04/28/19 16:41 ILL Review of Systems Review of Systems ROS Unobtainable: All systems reviewed & are unremarkable except as noted in HPI and below Constitutional Denies chills, Denies fever(s), Denies lethargy and Denies weakness Eyes Denies change in vision, Denies eye discharge, Denies irritation and Denies loss of vision ENT Ears, Nose, Mouth, and Throat: Denies change in voice, Denies neck pain and Denies sore throat Cardiovascular Denies chest pain, Denies irregular heart rhythm, Denies lightheadedness, Denies palpitations, Denies dyspnea, Denies dyspnea on exertion and Denies orthopnea Respiratory Denies cough, Denies dyspnea, Denies dyspnea on exertion and Denies wheezing Gastrointestinal Gastrointestinal: Reports abdominal pain, Reports bloating, Denies change in bowel habits, Denies diarrhea, Denies nausea and Denies vomiting Genitourinary Denies hematuria, Denies flank pain, Denies urinary incontinence and Denies urinary urgency Musculoskeletal Denies neck pain Integumentary/Breasts Denies pruritus, Denies erythema, Denies rash and Denies wounds Neurologic Denies confusion, Denies loss of vision and Denies weakness Psychiatric Denies anxiety, Denies confusion, Denies depression, Denies homicidal ideation and Denies suicidal ideation Endocrine Denies palpitations Hematologic/Lymphatic Denies easy bruising Allergic/Immunologic Denies wheezing [facility] Medical History (Updated 04/28/19 @ 19:08 by Sandy Wallis MD) Hypothyroidism (Chronic 2013) Surgical History S/P cholecystectomy (Acute) History of bilateral tubal ligation (Acute) Family History (Updated 05/04/18 @ 12:37 by Ciara Rivera) Mother Hypothyroidism Father Hyperlipidemia CAD (coronary artery disease) Social History household members: family and children Smoking Status: Never smoker alcohol intake: never substance use type: does not use Family History Mother Hypothyroidism Father Hyperlipidemia CAD (coronary artery disease) Social History household members: family and children Smoking Status: Never smoker alcohol intake: never substance use type: does not use Exam Initial Vital Signs Initial Vital Signs: Vital Signs Temperature 98.5 F 04/28/19 16:41 Pulse Rate 85 04/28/19 16:41 Respiratory Rate 18 04/28/19 16:41 Blood Pressure 117/79 04/28/19 16:41 Pulse Oximetry 99 04/28/19 16:41 Const General: cooperative and well developed Nutritional Appearance: well nourished Orientation: alert, awake, oriented x3 and not confused [facility] Head: normocephalic and atraumatic Ears: external ears normal Nose: external nose normal and No nasal discharge Face and sinus: face symmetric and No dry mucous membranes Mouth: oral mucosae normal and moist mucous membranes Teeth and gingiva: dentition normal Eyes General: appearance normal, both eyes and all related structures Eyelids: eyelids normal Conjunctivae: conjunctivae normal Sclera: sclerae normal Pupils: PERRL EOM: EOM intact bilaterally Neck Neck: normal visual inspection, trachea midline, No lymphadenopathy, No midline deformity and No JVD Lymphatic: No lymphedema Chest Chest: normal inspection of the chest Resp Effort & Inspection: normal respiratory effort, able to speak in complete sentences, no respiratory distress and no use of accessory muscles Auscultation: clear to auscultation bilaterally, no rales, no rhonchi and no wheezes Cardio Rate: regular rate Rhythm: regular rhythm Heart Sounds: no click, no gallops, no murmurs and no rubs Pulses: normal peripheral pulses GI Inspection: distended (Moderate) Palpation: soft, no hepatosplenomegaly, No guarding, No pulsatile mass and tender (Moderate, bilateral upper abdomen, mainly around incision sites.) Auscultation: normal bowel sounds Other: Patient has several incisions sites, all of which appear healthy. They are all clean, dry and intact. Back/Spine/Pelvis Back: No CVA tenderness Cervical Spine: cervical ROM normal and No pain with cervical ROM Thoracic/Lumbar Spine: thoracic and lumbar spine normal to inspection Skin General: no rashes or lesions noted, No jaundice and No petechiae Neuro General: alert, oriented x3, gait normal and no focal motor deficits Speech: speech normal Extrem General: full ROM, no clubbing, cyanosis or edema, no pedal edema and no calf tenderness Psych Appearance: well kempt Mental Status: mental status grossly normal Attitude: cooperative Thought Content: normal and suicidality Judgment: judgment good Course Course Narrative: Patient was worked up with labs and CT scan of the abdomen and pelvis. She was given a dose of Toradol for pain. Labs were unremarkable and CT scan showed no concerning findings, including at the surgical site. Patient was re-evaluated and found to be feeling better. Her results were discussed with her. We have discussed home management of postoperative pain, as well as the usual indications for return. Orders Ordered: Discontinued Medications Ketorolac Tromethamine (Toradol) 30 mg IV NOW ONE Stop: 04/28/19 17:45 Last Admin: 04/28/19 17:47 Dose: 30 mg Vital Signs - 8 hr 04/28/19 16:41 Temperature 98.5 F Pulse Rate 85 Respiratory Rate 18 Blood Pressure 117/79 Pulse Oximetry 99 MDM - Abdominal Pain Medical Records Attestation: I reviewed the patient's medical records. Lab Data Attestation: I reviewed the patient's lab results. Result diagrams: 04/28/19 17:05 04/28/19 17:05 Lab Results 04/28/19 04/28/19 04/28/19 Range/Units 17:05 17:05 17:05 WBC 8.1 (4.5-11.0) X10^3/uL RBC 4.37 (4.0-5.2) X10^6/uL Hgb 12.5 (12.0-16.0) g/dL Hct 37.3 (36-46) % MCV 85.3 (80-100) fL MCH 28.6 (26-34) PG MCHC 33.6 (30-36) % RDW 14.8 (11.6-14.8) % Plt Count 305 (150-400) X10^3/uL Neut % (Auto) 57.5 (50-75) % Lymph % (Auto) 26.7 (25-40) % Wood % (Auto) 7.3 (3-14) % Eos % (Auto) 7.4 H (2-4) % Baso % (Auto) 1.1 (0-2) % Neut # (Auto) 4700 (5944-8440) /uL Lymph # (Auto) 2200 (3319-6034) /uL Wood # (Auto) 600 (0-900) /uL Eos # (Auto) 600 H (0-450) /uL Baso # (Auto) 100 (0-100) /uL Sodium 141 (137-145) mmol/L Potassium 4.4 (3.4-5.1) mmol/L Chloride 105 (98-107) mmol/L Carbon Dioxide 27 (22-32) mmol/L BUN 16 (7-17) mg/dL Creatinine 0.60 (0.52-1.04) mg/dL Estimated GFR > 60.0 (>60) mL/min BUN/Creatinine Ratio 26.7 H (6-22) Glucose 95 (70-100) mg/dL Lactate 1.2 (0.7-2.1) mmol/L Calcium 9.6 (8.4-10.2) mg/dL Total Bilirubin 0.5 (0.2-1.3) mg/dL AST 57 H (14-36) IU/L ALT 219 H (9-52) IU/L Alkaline Phosphatase 98 (38-126) U/L Total Protein 7.4 (6.3-8.2) g/dL Albumin 4.5 (3.5-5.0) g/dL Globulin 2.9 (1.7-4.1) g/dL Albumin/Globulin Ratio 1.6 (1.0-2.8) Lipase (23-300) U/L 04/28/19 Range/Units 17:05 WBC (4.5-11.0) X10^3/uL RBC (4.0-5.2) X10^6/uL Hgb (12.0-16.0) g/dL Hct (36-46) % MCV (80-100) fL MCH (26-34) PG MCHC (30-36) % RDW (11.6-14.8) % Plt Count (150-400) X10^3/uL Neut % (Auto) (50-75) % Lymph % (Auto) (25-40) % Wood % (Auto) (3-14) % Eos % (Auto) (2-4) % Baso % (Auto) (0-2) % Neut # (Auto) (9508-9273) /uL Lymph # (Auto) (7631-3882) /uL Wood # (Auto) (0-900) /uL Eos # (Auto) (0-450) /uL Baso # (Auto) (0-100) /uL Sodium (137-145) mmol/L Potassium (3.4-5.1) mmol/L Chloride (98-107) mmol/L Carbon Dioxide (22-32) mmol/L BUN (7-17) mg/dL Creatinine (0.52-1.04) mg/dL Estimated GFR (>60) mL/min BUN/Creatinine Ratio (6-22) Glucose (70-100) mg/dL Lactate (0.7-2.1) mmol/L Calcium (8.4-10.2) mg/dL Total Bilirubin (0.2-1.3) mg/dL AST (14-36) IU/L ALT (9-52) IU/L Alkaline Phosphatase (38-126) U/L Total Protein (6.3-8.2) g/dL Albumin (3.5-5.0) g/dL Globulin (1.7-4.1) g/dL Albumin/Globulin Ratio (1.0-2.8) Lipase 154 (23-300) U/L Imaging Data CT scan - abdomen: Attestation: I personally reviewed and interpreted this imaging study as follows: Radiologist's impression: PROCEDURE: CT ABDOMEN PELVIS W CON INDICATIONS: abd pain post-feliciano TECHNIQUE: After the administration of intravenous contrast, 5 mm thick sections acquired from the diaphragm to the symphysis. 5 mm coronal and sagittal reformats were acquired. For radiation dose reduction, the following was used: automated exposure control, adjustment of mA and/or kV according to patient size. COMPARISON: [facility], CT, CT ABDOMEN PELVIS W CON, 04/22/2019, 21:39. FINDINGS: Image quality: Excellent. ABDOMEN: Lung bases: Lung bases are clear. Heart size is normal. Solid organs: Liver is normal in size. Hepatic steatosis is seen. No discrete hepatic lesion. Gallbladder is surgically absent. No abnormal fluid collection is seen within the gallbladder fossa. Biliary system is non dilated. Pancreas enhances normally. Spleen is normal in size and enhancement. No adrenal nodules. Kidneys demonstrate normal size and enhancement, without hydronephrosis. Peritoneum and bowel: Bowel loops demonstrate normal wall thickness and caliber. No free fluid or air. A small hiatal hernia is seen. Fecal stasis throughout the colon is noted. No free fluid or free air. Nodes and vessels: No retroperitoneal or mesenteric adenopathy by size criteria. Aorta and inferior vena cava are normal in size. Miscellaneous: No ventral hernias. PELVIS: Genitourinary: Bladder wall thickness is normal. Uterus and bilateral adnexa show no gross abnormality. Miscellaneous: No inguinal hernias or adenopathy. Bones: No suspicious bony lesions. No vertebral body compression fractures. IMPRESSION: 1. Patient is status post cholecystectomy. No abnormal fluid collection is seen in gallbladder fossa. 2. No bowel obstruction. No free fluid or free air. 3. Hepatic steatosis. No discrete hepatic lesion. Dictated by: Kev Reynoso M.D. on 04/28/2019 at 18:35 Approved by: Kev Reynoso M.D. on 04/28/2019 at 18:38 Discharge Plan Departure Patient Disposition: Home Clinical Impression: Acute postoperative abdominal pain Constipation Qualifiers: Constipation type: slow transit constipation Qualified Code(s): K59.01 - Slow transit constipation Discharge Date/Time: 04/28/19 19:16 Interventions: ED Discharge Assessment Last Done: 04/28/19 19:16 Instructions: DI for Constipation Activity Restrictions/Additional Instructions: Your labs look good, as does your CT scan. There is no evidence of a problem at your surgical site. The CT does show that you have a back lock of stool, which is the most likely reason your so bloated. Although you have been having some bowel movements recently, your bowels most likely are still moving more slowly than usual, secondary to the recent surgery and anesthesia. This will resolve on its own in the next week or 2, but you should continue to use the stool softeners until your bloating resolves. If you're still having issues after the next week, please discuss the situation with your surgeon to determine whether anything else should be done to mitigate the problem. At this point however there is no evidence of an emergent condition causing your symptoms. Prescriptions: No Action zolpidem 10 mg tablet 10 mg PO HSP Qty: 30 RF: 5 ibuprofen [Advil] 200 mg Tablet 400 mg PO QID PRN (Reason: Pain (Scale Score 1-3)) RF: 0 oxycodone 5 mg tablet 5 mg PO Q4-6H PRN (Reason: pain) Qty: 10 RF: 0 Referrals: Rohan Adrian MD [Primary Care Provider] -
[2019-04-28 17:43] LABS: Lipase 154 U/L (23-300)
[2019-04-28] MEDS: KETOROLAC 60 MG/2 ML VIAL 30 MG IV (17:47)
[2019-04-28 18:41] VITALS: BP 110/57; PULSE 87; RESP 16; O2SAT 100
[2019-04-28 19:16] VITALS: BP 112/60; PULSE 82; RESP 16; TEMP 36.8; O2SAT 100
== END 2019-04-28 19:16 | disposition home or self-care (01) ==
PROVIDERS: Emergency Provider Emergency Medicine; PCP Student in an Organized Health Care Education/Training Program
DX: K59.01 Slow transit constipation (principal); G89.18 Other acute postprocedural pain
CPT/HCPCS: 36415; 74177; 80053; 83605; 83690; 85025; 96374; 99282; 99284; J1885; Q9967

== ENCOUNTER → 2019-06-28 12:00 | Outpatient (CLI) | payer OTHER, MEDICAID, SELFPAY ==
[2019-06-28 13:26] LABS: Free T3, Triiodothyronine Free 2.89 pg/mL (2.77-5.27); Free T4, Direct Thyroxine 0.68 ng/dL (0.78-2.19)
[2019-06-28 13:40] LABS: Thyroid Stimulating Hormone 4.52 uIU/mL (0.47-4.68)
[2019-06-28 15:47] LABS: Vitamin D 25 Hydroxy (D3) 21.3 ng/mL (30.0-100.0)
== END ==
PROVIDERS: PCP Student in an Organized Health Care Education/Training Program; Visit Provider Student in an Organized Health Care Education/Training Program
DX: E03.9 Hypothyroidism, unspecified (principal); E55.9 Vitamin D deficiency, unspecified
CPT/HCPCS: 36415; 82306; 84439; 84443; 84481

== ENCOUNTER → 2019-09-21 13:24 | Outpatient (CLI) | payer OTHER, MEDICAID, SELFPAY | PROVIDERS: PCP Student in an Organized Health Care Education/Training Program; Visit Provider Physician Assistant | DX: N30.01 Acute cystitis with hematuria (principal) | CPT/HCPCS: 87077; 87086; 87186 ==

== ENCOUNTER → 2020-02-28 14:01 | Outpatient (CLI) | payer OTHER, MEDICAID, SELFPAY ==
[2020-02-28 14:48] LABS: Hematocrit 38.9 % (36-46); Hemoglobin 13.2 g/dL (12.0-16.0); Mean Corpuscular Hemoglobin 29.6 PG (26-34); Mean Corpuscular Volume 87.1 fL (80-100); Platelet Count 310 X10^3/uL (150-400); Red Blood Cell Count 4.47 X10^6/uL (4.0-5.2); White Blood Cell Count 5.6 X10^3/uL (4.5-11.0)
[2020-02-28 15:56] LABS: Prothrombin Time 11.4 SECONDS (10.1-12.7)
[2020-02-28 15:58] LABS: PTT Partial Thromboplastin Tim 29 SECONDS (26.4-36.2)
[2020-02-28 16:45] LABS: HEMOLYSIS < 15 (0-50); Iron 68 ug/dL (37-170)
[2020-02-28 16:50] LABS: C-Reactive Protein Quant < 0.5 mg/dL (<1.0)
[2020-02-28 16:56] LABS: Percent Iron Saturation 17 % (15-50); Total Iron Binding Capacity 409 ug/dL (265-497); Transferrin 342 mg/dL (206-381)
[2020-02-29 20:07] LABS: ANA Screen, IFA Negative (.)
== END ==
PROVIDERS: PCP Student in an Organized Health Care Education/Training Program; Referring Provider Student in an Organized Health Care Education/Training Program; Visit Provider Student in an Organized Health Care Education/Training Program
DX: G25.81 Restless legs syndrome (principal); I73.00 Raynaud's syndrome without gangrene; N92.0 Excessive and frequent menstruation with regular cycle; R23.8 Other skin changes
CPT/HCPCS: 36415; 83540; 83550; 85027; 85610; 85730; 86038; 86140

== ENCOUNTER → 2020-05-23 13:55 | Outpatient (CLI) | payer OTHER, MEDICAID, SELFPAY | PROVIDERS: PCP Student in an Organized Health Care Education/Training Program; Visit Provider Physician Assistant | DX: R30.0 Dysuria (principal) | CPT/HCPCS: 87077; 87086; 87186 ==

== ENCOUNTER → 2020-08-06 09:20 | Outpatient (CLI) | payer OTHER, MEDICAID, SELFPAY | PROVIDERS: PCP Student in an Organized Health Care Education/Training Program; Visit Provider Nurse Practitioner | DX: N89.8 Other specified noninflammatory disorders of vagina (principal) | CPT/HCPCS: 87255 ==

== ENCOUNTER → 2020-08-06 09:38 | Outpatient (CLI) | payer OTHER, MEDICAID, SELFPAY ==
[2020-08-06 16:38] LABS: Hepatitis B Surface Antigen NEGATIVE s/c (NEGATIVE)
[2020-08-06 16:55] LABS: HIV 1 & 2 Ab/Ag 4th Gen Combo NEGATIVE (NEGATIVE); Hep C Virus Ab w/Reflex Quant NEGATIVE s/c (NEGATIVE)
[2020-08-07 04:36] LABS: RPR Screen Non Reactive (Non Reactive)
[2020-08-07 05:18] LABS: HSV 2 IGG AB < 0.91 index (0.00-0.90)
== END ==
PROVIDERS: PCP Student in an Organized Health Care Education/Training Program; Referring Provider Nurse Practitioner; Visit Provider Nurse Practitioner
DX: N89.8 Other specified noninflammatory disorders of vagina (principal)
CPT/HCPCS: 36415; 86592; 86695; 86696; 86803; 87255; 87340; 87389; 87491; 87591

== ENCOUNTER → 2025-03-20 11:09 | Outpatient (CLI) | payer OTHER, SELFPAY ==
[2025-03-20 12:20] LABS: Add Manual Diff / Slide Review NO; Basophils Absolute Auto 0 /uL (0-100); Basophils Percent Auto 0.6 % (0-2); Eosinophils Absolute Auto 100 /uL (0-450); Hematocrit 36.3 % (36-46); Hemoglobin 11.9 g/dL (12.0-16.0); Lymphocytes Absolute Auto 2100 /uL (1100-4500); Lymphocytes Percent Auto 31.2 % (25-40); Mean Corpuscular HGB Conc 32.7 % (30-36); Mean Corpuscular Hemoglobin 24.3 PG (26-34); Mean Corpuscular Volume 74.1 fL (80-100); Monocytes Absolute Auto 400 /uL (0-900); Monocytes Percent Auto 6.3 % (3-14); Neutrophils Absolute Auto 4100 /uL (1500-7000); Neutrophils Percent Auto 59.9 % (50-75); Platelet Count 374 X10^3/uL (150-400); Red Blood Cell Count 4.89 X10^6/uL (4.0-5.2); Red Cell Distribution Width 17.4 % (11.6-14.8); White Blood Cell Count 6.9 X10^3/uL (4.5-11.0)
[2025-03-20 12:41] LABS: Alanine Aminotransferase 18 IU/L (<35); Albumin 4.8 g/dL (3.5-5.0); Albumin Globulin Ratio 1.4 (1.0-2.8); Alkaline Phosphatase 77 U/L (38-126); Aspartate Aminotransferase 26 IU/L (14-36); BUN Creatinine Ratio 23.5 (6-22); Bilirubin Total 1.2 mg/dL (0.2-1.3); Blood Urea Nitrogen 16 mg/dL (7-17); Calcium 9.3 mg/dL (8.4-10.2); Carbon Dioxide 22 mmol/L (22-32); Chloride 107 mmol/L (98-107); Cholesterol 215 mg/dL (140-199); Estimated Glomerular Filt Rate > 60 mL/min (>60); Globulin 3.4 g/dL (1.7-4.1); Glucose 93 mg/dL (70-99); HDL Cholesterol 46 mg/dL (40-60); HEMOLYSIS < 15 (0-50); LDL Cholesterol Calculated 143 mg/dL (<100); Potassium 4.2 mmol/L (3.4-5.1); Sodium 140 mmol/L (137-145); Total Protein 8.2 g/dL (6.3-8.2); Triglycerides 131 mg/dL (35-150)
[2025-03-20 13:04] LABS: Thyroid Stimulating Hormone 3.31 uIU/mL (0.47-4.68)
== END ==
PROVIDERS: PCP Family Medicine; Referring Provider Family Medicine; Visit Provider Family Medicine
DX: Z00.00 Encounter for general adult medical examination without abnormal findings (principal); E03.9 Hypothyroidism, unspecified; G47.00 Insomnia, unspecified; E78.5 Hyperlipidemia, unspecified
CPT/HCPCS: 36415; 80053; 80061; 84443; 85025

== ENCOUNTER → 2025-04-14 08:45 | Outpatient (CLI) | payer OTHER, SELFPAY ==
--- NOTE | 2025-04-14 08:47 | DI.MG.S_ITS ---
MM diagnostic mammo BI, US breast RT limited: 04/14/2025 BI-RADS: 1 CLINICAL: 39-year old female for bilateral diagnostic mammogram and right diagnostic breast ultrasound. Tyrer-Cuzick lifetime risk of 7.9%. No personal or first- degree family history of breast cancer. The patient reports a palpable abnormality (3 months) and pain (3 months) in the right breast. PRIOR EXAMS 08/30/2023. MAMMOGRAPHY TECHNIQUE: 2D and 3D (tomosynthesis) digital mammographic views obtained, with additional images as needed for full coverage. Current study was also evaluated with a Computer Aided Detection (CAD) system. ULTRASOUND TECHNIQUE TARGETED Right Breast Ultrasound: Real-time ultrasound exam was performed focused to area of clinical and/or imaging concern. DENSITY C. The breasts are heterogeneously dense, which may obscure small masses. MAMMOGRAPHY FINDINGS Right: A marker overlies the breast at the site of palpable abnormality; there is no underlying mammographic correlate. No suspicious mass, asymmetry, microcalcification, or other abnormality seen. Bilateral: No suspicious mass, asymmetry, microcalcification, or other abnormality seen. ULTRASOUND FINDINGS Right: Upper Inner at 1:00, 8 cm from nipple: There is no sonographic correlate for the palpable abnormality. No suspicious sonographic finding present. IMPRESSION: * No evidence of malignancy. RECOMMENDATIONS Right * Clinical follow-up is recommended, and further management of palpable abnormalities or other focal signs or symptoms should be based on the results of clinical evaluation. If palpable abnormality or other concerning symptom persists or progresses, further clinical evaluation should be considered. Bilateral * Annual screening mammography. OVERALL ASSESSMENT CATEGORY BI-RADS-1: Negative. [employer] [place] [employer] recommends annual screening mammography beginning at age 40 for women with average risk of breast cancer. ELECTRONICALLY SIGNED: Giovany Jacobo M.D. on 04/14/2025 at 08:17:37 PM PT Interpreting Station ID: [id number]
== END ==
LOC: MAMMO 08:46
PROVIDERS: PCP Family Medicine; Referring Provider Family Medicine; Visit Provider Family Medicine
DX: N63.10 Unspecified lump in the right breast, unspecified quadrant (principal); N64.4 Mastodynia; R92.333 Mammographic heterogeneous density, bilateral breasts
CPT/HCPCS: 76642; 77066; G0279

== ENCOUNTER → 2025-08-14 10:12 | Outpatient (CLI) | payer OTHER, SELFPAY ==
[2025-08-14 11:22] LABS: Hemoglobin A1C% w Est Avg Glu 5.6 % (4.0-6.0)
== END ==
PROVIDERS: PCP Family Medicine; Referring Provider Family Medicine; Visit Provider Family Medicine
DX: R63.5 Abnormal weight gain (principal); Z68.25 Body mass index [BMI] 25.0-25.9, adult; R59.0 Localized enlarged lymph nodes; Z83.3 Family history of diabetes mellitus
CPT/HCPCS: 36415; 83036